=== PATIENT | female | born 1940 | race Caucasian/White ===

== ENCOUNTER 2024-08-01 15:10 | Outpatient (CLI) | payer MEDICARE, OTHER, SELFPAY | END 2024-08-01 15:11 | disposition home or self-care (01) | LOC: AMB 08-02 11:02 | PROVIDERS: Visit Provider Internal Medicine | DX: R55 Syncope and collapse (principal) | CPT/HCPCS: A0425; A0427 ==

== ENCOUNTER 2024-08-01 15:55 | Emergency (ER) | payer MEDICARE, OTHER, SELFPAY ==
[2024-08-01 15:58] VITALS: BP 186/73; PULSE 65; RESP 16; TEMP 36.4; O2SAT 97; BMI 29.3
--- NOTE | 2024-08-01 16:13 | ED_ITS ---
HPI - General Adult General Chief complaint: Syncope/Fainted Stated complaint: Syncopal Time Seen by Provider: 08/01/24 16:08 History of Present Illness HPI narrative: Patient is a 84-year-old woman who was in town watching the reenactment [facility] [place] [employer]. She became lightheaded while the rate asked what was going on but did not fall. Who fell dizzy but the dizziness has resolved. Patient again was helped to sit down and has completely resolved her symptoms over the course of several minutes and now remains asymptomatic. EKG upon arrival shows a first-degree AV block with occasional PVCs. Patient by history has some dementia and is just visiting down from [address] [place] [address]. Again patient feels fine now with normal vital signs with the exception of mild hypertension. She had no seizure activity no neurologic symptoms. Related Data Allergies Allergy/AdvReac Type Severity Reaction Status Date / Time No Known Drug Allergies Allergy Verified 08/01/24 16:07 [facility] Social History Smoking Status: Never smoker How often do you have a drink containing alcohol: monthly or less AUDIT-C Alcohol total score: 1 Non-prescribed substance use: denies use Exam Narrative: Exam Narrative: EXAM GENERAL: Patient appears comfortable and well. EYES: No scleral icterus. LYMPH: No supraclavicular or cervical lymphadenopathy. SKIN: Visible skin seen during exam normal or with benign process only. EXT: No dependent lower extremity pedal edema. HEART: Regular rate and rhythm with no murmurs, rubs, or gallops. LUNGS: Clear to auscultation bilaterally with no crackles or wheezes. ABD: Soft, non tender, non distended. PSYCH: Good eye contact, speech is not pressured. Const: Vital Signs, click to edit/add: Vital Signs - 24 hr 08/01/24 15:58 08/01/24 16:33 Temperature 97.6 F Pulse Rate [Right Pulse Oximeter] 65 62 Respiratory Rate 16 16 Blood Pressure [Ri ght Upper Arm] 186/73 H 171/82 H Pulse Oximetry 97 97 Oxygen Delivery Me thod Room Air Room Air Course Course ED Course: Patient seen and examined. EKG upon my review shows a single PVC as well as sinus rhythm first-degree AV block. Troponin CBC basic metabolic panel pending. Vital Signs Vital signs: Initial Vital Signs Temperature 97.6 F 08/01/24 15:58 Temperature Source Temporal Artery Scan 08/01/24 15:58 Pulse Rate 65 08/01/24 15:58 Respiratory Rate 16 08/01/24 15:58 Blood Pressure 186/73 H 08/01/24 15:58 Blood Pressure Mean 110 H 08/01/24 15:58 Blood Pressure Position Semi-Fowlers 08/01/24 15:58 Pulse Oximetry 97 08/01/24 15:58 Oxygen Delivery Method Room Air 08/01/24 15:58 Vital Signs Temperature 97.6 F 08/01/24 15:58 Pulse Rate 65 08/01/24 15:58 Respiratory Rate 16 08/01/24 15:58 Blood Pressure 186/73 H 08/01/24 15:58 Pulse Oximetry 97 08/01/24 15:58 Oxygen Delivery Method Room Air 08/01/24 15:58 Temperature 97.6 F 08/01/24 15:58 Pulse Rate 62 08/01/24 16:33 Respiratory Rate 16 08/01/24 16:33 Blood Pressure 171/82 H 08/01/24 16:33 Pulse Oximetry 97 08/01/24 16:33 Oxygen Delivery Method Room Air 08/01/24 16:33 Medical Decision Making MDM Narrative Medical decision making narrative: Patient presents after developing lightheadedness while at [employer]. EKG shows sinus rhythm first-degree block with a single PVC. Troponin is negative electrolytes are unremarkable CBC is unremarkable. Patient is adamant that she wants no further workup wants to go home. This time she is discharged home with her friend and will follow-up with her doctor on a p.r.n. basis. Lab Data Labs: Lab Results 08/01/24 Range/Units 16:35 WBC 7.83 (4.50-11.00) K/uL RBC 3.74 L (4.00-5.20) m/uL Hgb 12.1 (12.0-16.0) gm/dL Hct 38.0 (33.0-51.0) % MCV 102 H (80-100) fL MCH 32 (26-34) pg MCHC 32 (32-36) gm/dL RDW Coeff of Claudine 12.0 (11.5-15.5) % Plt Count 188 (140-440) K/uL Neut % (Auto) 72.0 (42.0-72.0) % Lymph % (Auto) 18.0 L (20-44) % Oliver % (Auto) 7.4 (0.0-11.0) % Eos % (Auto) 1.9 (0.0-7.0) % Baso % (Auto) 0.6 (0.0-3.0) % Neut # (Auto) 5.63 (1.7-7.0) K/uL Lymph # (Auto) 1.40 (0.90-2.90) K/uL Oliver # (Auto) 0.60 (0.00-0.90) K/UL Eos # (Auto) 0.15 (0.00-0.50) K/uL Baso # (Auto) 0.05 (0.00-0.30) K/uL Abs Immat Gran (auto) 0.01 (0.00-0.30) K/uL Imm/Tot Granulo (auto) 0.1 % Sodium 133 L (135-149) mmol/L Potassium 4.6 (3.6-5.1) mmol/L Chloride 103 (96-114) mmol/L Carbon Dioxide 21 (20-32) mmol/L Anion Gap 9 (7-15) mEq/L BUN 31 H (7-30) mg/dL Creatinine 1.1 (0.5-1.5) mg/dL Estimated Creat Clear 30.11 Estimated GFR 50 ml/min Glucose 128 H (60-115) mg/dL Calcium 9.5 (8.4-10.6) mg/dL Troponin I < 0.01 L (0.01-0.04) ng/mL Discharge Plan Discharge Clinical Impression: Light-headedness Patient Disposition: Home, Self-Care Condition: Stable Instructions: Near Syncope (ED) Additional Instructions: Continue current medications Follow-up with your doctor as needed. Activity Level: No Restrictions Discharge Diet: Regular Follow Up/Referrals: Provider,Not a Local [Primary Care Provider] - Stand Alone Forms: [employer] Info Instructions
[2024-08-01 16:33] VITALS: BP 171/82; PULSE 62; RESP 16; O2SAT 97
[2024-08-01 16:43] LABS: Basophils Absolute Auto 0.05 K/uL (0.00-0.30); Basophils Percent Auto 0.6 % (0.0-3.0); Eosinophils Absolute Auto 0.15 K/uL (0.00-0.50); Eosinophils Percent Auto 1.9 % (0.0-7.0); Hemoglobin* 12.1 gm/dL (12.0-16.0); Immature Granulocytes Abs Auto 0.01 K/uL (0.00-0.30); Immature Granulocytes Pct Auto 0.1 %; Mean Corpuscular HGB Conc 32 gm/dL (32-36); Mean Corpuscular Hemoglobin 32 pg (26-34); Mean Corpuscular Volume 102 fL (80-100); Monocytes Percent Auto 7.4 % (0.0-11.0); Neutrophils Absolute Auto 5.63 K/uL (1.7-7.0); Platelet Count* 188 K/uL (140-440); Red Blood Count 3.74 m/uL (4.00-5.20); White Blood Count* 7.83 K/uL (4.50-11.00)
[2024-08-01 16:57] LABS: Slide Review Reflex No
[2024-08-01 17:01] LABS: Chloride* 103 mmol/L (96-114); Potassium* 4.6 mmol/L (3.6-5.1); Sodium* 133 mmol/L (135-149)
[2024-08-01 17:03] LABS: Creatinine* 1.1 mg/dL (0.5-1.5); Est. Creatinine Clearance* 30.11; Estimated Glomerular Filt Rate 50 ml/min
[2024-08-01 17:04] LABS: Anion Gap 9 mEq/L (7-15); Blood Urea Nitrogen* 31 mg/dL (7-30); Calcium* 9.5 mg/dL (8.4-10.6); Carbon Dioxide* 21 mmol/L (20-32); Glucose* 128 mg/dL (60-115)
[2024-08-01 17:17] LABS: Troponin I* < 0.01 ng/mL (0.01-0.04)
--- NOTE | 2024-08-01 17:33 | ED.NURSE ---
[employer] Team [employer] did call Pt son Reagan and update. Pt leaves ER now ambulatory accompanied by friend Alison whom did drive Pt to [place] today.
== END 2024-08-01 17:39 | disposition home or self-care (01) ==
PROVIDERS: Emergency Provider Internal Medicine
DX: R42 Dizziness and giddiness (principal)
CPT/HCPCS: 36415; 80048; 84484; 85025; 99283